=== PATIENT | male | born 1950 | race Caucasian/White ===

== ENCOUNTER 2025-04-19 03:09 | Observation (INO) | payer MEDICARE ==
--- NOTE | 2025-04-19 03:35 | ED ---
General Adult HPI - General Chief complaint: Chest Pain Stated complaint: Chest pain Time Seen by Provider: 04/19/25 03:13 Source: patient, RN notes reviewed, old records reviewed Mode of arrival: ambulatory - History of Present Illness Initial comments: 74-year-old male presenting with chief complaint of chest pain, tightness in the center of the chest. This woke the patient from sleep. This was associated with nausea and diaphoresis. Patient states the pain is improved at the time my evaluation. Pain did not radiate. Patient has had a previous positive coronary calcium score and states that he has had a negative stress test in the past. - Related Data Allergies Allergy/AdvReac Type Severity Reaction Status Date / Time No Known Allergies Allergy Verified 04/19/25 03:15 Review of Systems ROS Statement: Those systems with pertinent positive or pertinent negative responses have been documented in the HPI. ROS Other: All systems not noted in ROS Statement are negative. Past Medical History Past Medical History: Hyperlipidemia, Hypertension History of Any Multi-Drug Resistant Organisms: None Reported Past Surgical History: Orthopedic Surgery, Tonsillectomy Past Psychological History: No Psychological Hx Reported Smoking Status: Never smoker Past Alcohol Use History: Occasional Past Drug Use History: None Reported General Exam General appearance: alert, in no apparent distress Head exam: Present: atraumatic, normocephalic Eye exam: Present: normal appearance, PERRL ENT exam: Present: normal exam Neck exam: Present: normal inspection. Absent: tenderness, meningismus Respiratory exam: Present: normal lung sounds bilaterally. Absent: respiratory distress, wheezes Cardiovascular Exam: Present: regular rate, normal rhythm GI/Abdominal exam: Present: soft. Absent: distended, tenderness, guarding Extremities exam: Present: normal inspection, normal capillary refill Course Vital Signs 04/19/25 04/19/25 03:10 04:06 Temperature 97.6 F Pulse Rate 80 64 Respiratory 20 17 Rate Blood Pressure 158/86 153/98 O2 Sat by Pulse 96 99 Oximetry Medical Decision Making - Medical Decision Making Was pt. sent in by a medical professional or institution ( PA, STONE UNLOADER, urgent care, hospital, or [facility]...) When possible be specific @ -No Did you speak to anyone other than the patient for history (EMS, parent, family, police, friend...)? What history was obtained from this source @ -No Did you review nursing and triage notes (agree or disagree)? Why? @ -I reviewed and agree with nursing and triage notes Were old charts reviewed (outside hosp., previous admission, EMS record, old EKG, old radiological studies, urgent care reports/EKG's, [facility] records)? Report findings @ -No old charts were reviewed Differential Chest Pain: Stable Angina, Unstable Angina, STEMI, NSTEMI Aortic Dissection, Pneumothorax, Musculoskeletal, Esophageal Spasm GERD, Cholecystitis, Pancreatitis, Zoster, this is not meant to be an all-inclusive list. EKG interpreted by me (3pts min.). @Sinus rhythm rate of 68, MN interval 177, QRS duration 93, QTc [address] segment elevation. X-rays interpreted by me (1pt min.). @ -[Chest x-ray negative for acute cardiopulmonary findings CT interpreted by me (1pt min.). @ -None done U/S interpreted by me (1pt. min.). @ -None done What testing was considered but not performed or refused? (CT, X-rays, U/S, labs)? Why? @ -None What meds were considered but not given or refused? Why? @ -None Did you discuss the management of the patient with other professionals (professionals i.e. , PA, STONE UNLOADER, lab, RT, psych nurse, social work job titles, slubber machine operator, teacher, ground nuclear weapons assembly officer, family service caseworker)? Give summary @ -EMH Was smoking cessation discussed for >3mins.? @ -No Was critical care preformed (if so, how long)? @ -No Were there social determinants of health that impacted care today? How? (Homelessness, low income, unemployed, alcoholism, drug addiction, transportation, low edu. Level, literacy, decrease access to med. care, correction, rehab)? @ -No Was there de-escalation of care discussed even if they declined (Discuss DNR or withdrawal of care, Hospice)? DNR status @ -No What co-morbidities impacted this encounter? (DM, HTN, Smoking, COPD, CAD, Can cer, CVA, ARF, Chemo, Hep., AIDS, mental health diagnosis, sleep apnea, morbid obesity)? @ -None Was patient admitted / discharged? Hospital course, mention meds given and route, prescriptions, significant lab abnormalities, going to OR and other pertinent info. @ -74-year-old male woke with substernal chest pain, nonradiating. This was associated with nausea and diaphoresis. This is improved at the time my evaluation. Patient states he has previously had a positive coronary calcium score but does not have any prior cardiac history. Patient has an EKG showing sinus rhythm without ST segment elevation. His chest x-ray is clear no acute cardiopulmonary findings. He has a normal CBC, normal CMP, negative initial troponin. Patient will be kept in observation for serial cardiac enzymes, telemetry, cardiology consultation. Undiagnosed new problem with uncertain prognosis? @ -No Drug Therapy requiring intensive monitoring for toxicity (Heparin, Nitro, Insulin, Cardizem)? @ -No Were any procedures done? @ -No Diagnosis/symptom? @ -Chest pain rule out Acute, or Chronic, or Acute on Chronic? @Acute Uncomplicated (without systemic symptoms) or Complicated (systemic symptoms)? @ -Default Side effects of treatment? @ -No Exacerbation, Progression, or Severe Exacerbation? @ -No Poses a threat to life or bodily function? How? (Chest pain, [place], [place], pneumonia, PE, COPD, DKA, ARF, appy, cholecystitis, CVA, Diverticulitis, Homicidal, Suicidal, threat to staff... and all critical care pts) @ -Yes, ACS - Lab Data Result diagrams: 04/19/25 03:33 04/19/25 03:33 Lab Results 04/19/25 04/19/25 04/19/25 Range/Units 03:33 03:33 03:33 WBC 8.94 (4.50-10.00) 10*3/uL RBC 4.48 (4.40-5.60) 10*6/uL Hgb 15.1 (13.0-17.0) g/dL Hct 43.3 (39.6-50.0) % MCV 96.7 (80.0-97.0) fL MCH 33.7 H (27.0-32.0) pg MCHC 34.9 (32.0-37.0) g/dL Plt Count 215 (140-440) 10*3/uL MPV 10.5 (9.5-12.2) fL Immature Gran % (Auto) 0.1 % Neutrophils % 56.0 % Lymphocytes % 27.0 % Monocytes % 13.0 % Eosinophils % 3.2 % Basophils % 0.7 % Immature Gran # 0.01 (0.00-0.04) 10*3/uL Neutrophils # 5.01 (1.80-7.70) 10*3/uL Lymphocytes # 2.41 (0.90-5.00) 10*3/uL Monocytes # 1.16 H (0.20-1.00) 10*3/uL Eosinophils # 0.29 (0.04-0.35) 10*3/uL Basophils # 0.06 (0.00-0.10) 10*3/uL PT 10.5 (10.0-12.5) sec INR 0.9 (<1.2) APTT 24.3 (22.0-30.0) sec Sodium 137 (137-145) mmol/L Potassium 5.1 (3.5-5.1) mmol/L Chloride 102 (98-107) mmol/L Carbon Dioxide 24 (22-30) mmol/L Anion Gap 11 mmol/L BUN 31 H (9-20) mg/dL Creatinine 1.04 (0.66-1.25) mg/dL Est GFR (CKD-EPI)AfAm 82 (>60 ml/min/1.73 sqM) Est GFR (CKD-EPI)NonAf 71 (>60 ml/min/1.73 sqM) Glucose 106 H (74-99) mg/dL Calcium 9.7 (8.4-10.2) mg/dL Magnesium 2.2 (1.6-2.3) mg/dL Total Bilirubin 1.4 H (0.2-1.3) mg/dL AST 36 (17-59) U/L ALT 39 (4-49) U/L Alkaline Phosphatase 69 (38-126) U/L Troponin I (0.000-0.034) ng/mL Total Protein 7.4 (6.3-8.2) g/dL Albumin 4.6 (3.5-5.0) g/dL 04/19/25 Range/Units 03:33 WBC (4.50-10.00) 10*3/uL RBC (4.40-5.60) 10*6/uL Hgb (13.0-17.0) g/dL Hct (39.6-50.0) % MCV (80.0-97.0) fL MCH (27.0-32.0) pg MCHC (32.0-37.0) g/dL Plt Count (140-440) 10*3/uL MPV (9.5-12.2) fL Immature Gran % (Auto) % Neutrophils % % Lymphocytes % % Monocytes % % Eosinophils % % Basophils % % Immature Gran # (0.00-0.04) 10*3/uL Neutrophils # (1.80-7.70) 10*3/uL Lymphocytes # (0.90-5.00) 10*3/uL Monocytes # (0.20-1.00) 10*3/uL Eosinophils # (0.04-0.35) 10*3/uL Basophils # (0.00-0.10) 10*3/uL PT (10.0-12.5) sec INR (<1.2) APTT (22.0-30.0) sec Sodium (137-145) mmol/L Potassium (3.5-5.1) mmol/L Chloride (98-107) mmol/L Carbon Dioxide (22-30) mmol/L Anion Gap mmol/L BUN (9-20) mg/dL Creatinine (0.66-1.25) mg/dL Est GFR (CKD-EPI)AfAm (>60 ml/min/1.73 sqM) Est GFR (CKD-EPI)NonAf (>60 ml/min/1.73 sqM) Glucose (74-99) mg/dL Calcium (8.4-10.2) mg/dL Magnesium (1.6-2.3) mg/dL Total Bilirubin (0.2-1.3) mg/dL AST (17-59) U/L ALT (4-49) U/L Alkaline Phosphatase (38-126) U/L Troponin I <0.012 (0.000-0.034) ng/mL Total Protein (6.3-8.2) g/dL Albumin (3.5-5.0) g/dL Disposition Clinical Impression: Chest pain Disposition: ADMITTED IP TO THIS [facility] Condition: Stable Is patient prescribed a controlled substance at d/c from ED?: No Referrals: None,Stated [Primary Care Provider] - 1-2 days Time of Disposition: 04:54
[2025-04-19 03:46] LABS: Basophils # (A) 0.06 10*3/uL (0.00-0.10); Basophils % (A) 0.7 %; Eosinophils # (A) 0.29 10*3/uL (0.04-0.35); Eosinophils % (A) 3.2 %; HCT 43.3 % (39.6-50.0); HGB 15.1 g/dL (13.0-17.0); Lymphocytes # (A) 2.41 10*3/uL (0.90-5.00); Lymphocytes % (A) 27.0 %; MCH 33.7 pg (27.0-32.0); MCHC 34.9 g/dL (32.0-37.0); MCV 96.7 fL (80.0-97.0); Monocytes # (A) 1.16 10*3/uL (0.20-1.00); Monocytes % (A) 13.0 %; Neutrophils # (A) 5.01 10*3/uL (1.80-7.70); Neutrophils % (A) 56.0 %; Platelet Count 215 10*3/uL (140-440); RBC 4.48 10*6/uL (4.40-5.60); RDW 12.8 % (11.5-14.5); WBC 8.94 10*3/uL (4.50-10.00)
[2025-04-19] MEDS: ASPIRIN 81 MG PO STA (04:01)
[2025-04-19 04:05] LABS: ALT 39 U/L (4-49); AST 36 U/L (17-59); African American GFR (CKD) 82 (>60 ml/min/1.73 sqM); Albumin 4.6 g/dL (3.5-5.0); Alkaline Phosphatase 69 U/L (38-126); Anion Gap 11 mmol/L; Blood Urea Nitrogen 31 mg/dL (9-20); Calcium 9.7 mg/dL (8.4-10.2); Carbon Dioxide 24 mmol/L (22-30); Chloride 102 mmol/L (98-107); Glucose 106 mg/dL (74-99); Magnesium 2.2 mg/dL (1.6-2.3); Non-African American GFR(CKD) 71 (>60 ml/min/1.73 sqM); Potassium 5.1 mmol/L (3.5-5.1); Sodium 137 mmol/L (137-145); Total Protein 7.4 g/dL (6.3-8.2)
[2025-04-19 04:12] LABS: INR 0.9 (<1.2); Partial Thromboplastin Time 24.3 sec (22.0-30.0); Prothrombin Time 10.5 sec (10.0-12.5)
[2025-04-19] MEDS ORDERED: NALOXONE 0.4 MG/ML 1 ML VIAL IV PRN (04:50)
[2025-04-19] MEDS ORDERED: ACETAMINOPHEN TAB 325 MG TAB PO PRN (04:50)
--- NOTE | 2025-04-19 05:17 | XR ---
EXAM: XR Chest, 2 Views CLINICAL HISTORY: ITS.REASON XR Reason: Chest Pain TECHNIQUE: Frontal and lateral views of the chest. COMPARISON: No relevant prior studies available. FINDINGS: Lungs: Unremarkable. No consolidation. Pleural space: Unremarkable. No pneumothorax. Heart: Unremarkable. No cardiomegaly. Mediastinum: Unremarkable. Normal mediastinal contour. Bones/joints: Degenerative changes are seen within the spine and shoulders. No acute fracture. IMPRESSION: No acute findings in the chest.
[2025-04-19] MEDS: ASPIRIN 81 MG PO SCH (10:15)
--- NOTE | 2025-04-19 11:07 | CA ---
Transthoracic Echo Report Name: Kain Mendoza Age: 74 Gender: M : 1950 Exam Date: 04/19/2025 09:54 Exam Location: [facility] Ht (in): 77 Wt (lb): 238 Ordering Physician: Robyn Santana Attending/Referring Phys: [id number], Esther Hot Die Press Operator Yaritza Sevilla RDCS Procedure CPT: Indications: Chest Pain Cardiac Hx: Technical Quality: Fair Contrast 1: Total Dose (mL): Contrast 2: Total Dose (mL): MEASUREMENTS (Male / Female) Normal Values 2D ECHO LV Diastolic Diameter PLAX 4.3 cm 4.2 - 5.9 / 3.9 - 5.3 cm LV Systolic Diameter PLAX 3.1 cm IVS Diastolic Thickness 0.9 cm 0.6 - 1.0 / 0.6 - 0.9 cm LVPW Diastolic Thickness 0.8 cm 0.6 - 1.0 / 0.6 - 0.9 cm LV Relative Wall Thickness 0.4 RV Internal Dim ED PLAX 3.5 cm LA Systolic Diameter LX 3.4 cm 3.0 - 4.0 / 2.7 - 3.8 cm LV Diastolic Volume MOD 4C 111.9 cm??? LV Systolic Volume MOD 4C 47.8 cm??? LV Ejection Fraction MOD 4C 57.3 % LV Cardiac Index MOD 4C 1841.7 cm???/min???m??? LV Diastolic Length 4C 9.1 cm LV Systolic Length 4C 7.7 cm LV Diastolic Volume MOD 2C 85.0 cm??? LV Systolic Volume MOD 2C 41.4 cm??? LV Ejection Fraction MOD 2C 51.3 % LV Cardiac Index MOD 2C 1252.0 cm???/min???m??? LV Diastolic Length 2C 9.7 cm LV Systolic Length 2C 8.3 cm LA Volume 43.1 cm??? 18 - 58 / 22 - 52 cm??? LA Volume Index 17.7 cm???/m??? 16 - 28 cm???/m??? M-MODE Aortic Root Diameter MM 3.8 cm AV Cusp Separation MM 2.1 cm DOPPLER AV Peak Velocity 121.0 cm/s AV Peak Gradient 5.9 mmHg MV Area PHT 3.0 cm??? Mitral E Point Velocity 66.2 cm/s Mitral A Point Velocity 66.6 cm/s Mitral E to A Ratio 1.0 MV Deceleration Time 253.1 ms FINDINGS Left Ventricle Left ventricular ejection fraction is estimated at 55-60 %. Left ventricular cavity size normal. Left ventricular wall thickness normal. No obvious regional wall motion abnormalities. Right Ventricle Normal right ventricular size. Unable to estimate the right ventricular systolic pressure. Right Atrium Normal right atrial size. No right atrial thrombus or mass seen. Left Atrium Normal left atrial size. No left atrial thrombus or mass present. Mitral Valve Structurally normal mitral valve. No mitral stenosis, regurgitation or prolapse. Aortic Valve Trileaflet aortic valve. No aortic valve stenosis or regurgitation. Tricuspid Valve Structurally normal tricuspid valve. No tricuspid stenosis, regurgitation or prolapse. Pulmonic Valve Pulmonic valve not well visualized. No pulmonic regurgitation. Pericardium No pericardial effusion. Aorta Mild aortic dilatation at the level of the sinuses of valsalva 38 mm CONCLUSIONS 1. Normal left ventricular size and systolic function. 2. No significant valvular abnormality Previewed by: Dr. Maribel Jacobson MD (Electronically Signed) Final Date: 19 April 2025 11:07
[2025-04-19 11:10] VITALS: BP 141/79; PULSE 65; RESP 18; TEMP 98
--- NOTE | 2025-04-19 11:11 | P.CRDCN ---
History of Present Illness History of present illness: HISTORY OF PRESENT ILLNESS: This is a 74-year-old male with a past medical history significant for hypertension and hyperlipidemia. Patient follows with a addiction specialist in [place]. We have been asked to see the patient in consultation for chest pain. Patient examined at the bedside in the emergency room. Patient states that he woke up from sleep around 130 this morning with chest pain. He states that he went to lay on the couch for a while but the chest pain persisted so he went and woke up with his and came to the hospital for further evaluation. He denies any radiation of the pain. He states he is only having chest pain off he takes a deep breath. He denies any shortness of breath. Denies any dizziness or lightheadedness. Patient states he is very active and golfs and plays tennis a few times a week and also goes to the gym. He denies any known history of CAD. He does report a history of a high calcium score of 1700 and saw a addiction specialist in the [place] area. He underwent a stress test at that time which was unremarkable. He also reports having another stress test done 2 years ago in [place] that was normal. He does report daily caffeine use. He also reports 1- 2 alcoholic drinks a day. He is a non-smoker. DIAGNOSTICS: - EKG reveals sinus mechanism with no signs of acute ischemia. - Chest xray negative for acute findings. - Laboratory data: Troponin negative x 3 - Current home cardiac medications include aspirin 81 mg daily, Lipitor 10 mg daily, losartan 50 mg daily, amlodipine 5 mg daily. - Echocardiogram obtained this admission revealed ejection fraction 55 to 60% with no significant valvular abnormalities - Cardiac catheterization history: Patient denies REVIEW OF SYSTEMS: At the time of my exam: CONSTITUTIONAL: Denies fever or chills. HEENT: Denies blurred vision, vision changes, or eye pain. Denies hemoptysis CARDIOVASCULAR: Denies chest pain. Denies orthopnea. Denies PND. Denies palpitations RESPIRATORY: Denies shortness of breath. GASTROINTESTINAL: Denies abdominal pain. Denies nausea or vomiting. HEMATOLOGIC: Denies bleeding disorders. GENITOURINARY: Denies any blood in urine. SKIN: Denies pruitis. Denies rash. PHYSICAL EXAM: VITAL SIGNS: Reviewed. GENERAL: Well-developed in no acute distress. HEENT: Head is normocephalic. Pupils are equal, round. Sclerae anicteric. Mucous membranes of the mouth are moist. Neck supple. No JVD or thyromegaly LUNGS: Respirations even and unlabored. Lungs essentially clear to auscultation bilaterally. HEART: Regular rate and rhythm. S1 and S2 heard. ABDOMEN: Soft. Nondistended. Nontender. EXTREMITIES: Normal range of motion. No clubbing or cyanosis. Peripheral pulses intact. No lower extremity edema NEUROLOGIC: Awake and alert. Oriented x 3. ASSESSMENT: Chest pain, troponin negative x 3 History of hypertension History of hyperlipidemia Daily alcohol use PLAN: An acute coronary event has been ruled out 2D echo obtained and reviewed Resume home cardiac medications Recommend abstinence from alcohol Patient to undergo stress echocardiogram today If negative, patient may be discharged home from a cardiac standpoint Nurse practitioner note has been reviewed by physician. Signing provider agrees with the documented findings, assessment, and plan of care documented by CARD PAINTER as a scribe. Past Medical History Past Medical History: Hyperlipidemia, Hypertension History of Any Multi-Drug Resistant Organisms: None Reported Past Surgical History: Orthopedic Surgery, Tonsillectomy Past Psychological History: No Psychological Hx Reported Smoking Status: Never smoker Past Alcohol Use History: Occasional Past Drug Use History: None Reported Medications and Allergies Home Medications Medication Instructions Recorded Confirmed Type Aspirin 81 mg PO DAILY 04/19/25 04/19/25 History Atorvastatin [Lipitor] 10 mg PO HS 04/19/25 04/19/25 History Glucosa Branch 2Kcl/Chondroitin Branch 1 cap PO DAILY 04/19/25 04/19/25 History [Glucosamine-Chondroitin Cap] Losartan [Cozaar] 50 mg PO HS 04/19/25 04/19/25 History Multivitamins, Thera [Multivitamin 1 tab PO DAILY 04/19/25 04/19/25 History (formulary)] Omeprazole Magnesium [PriLOSEC OTC] 20 mg PO AC-BRKFST 04/19/25 04/19/25 History Psyllium Husk [Fiber Capsule] 0.8 gm PO DAILY 04/19/25 04/19/25 History amLODIPine [Norvasc] 5 mg PO HS 04/19/25 04/19/25 History Allergies Allergy/AdvReac Type Severity Reaction Status Date / Time No Known Allergies Allergy Verified 04/19/25 07:38 Physical Exam Vitals: Vital Signs Temp Pulse Resp BP Pulse Ox 04/19/25 05:01 64 17 137/80 100 04/19/25 04:06 64 17 153/98 99 04/19/25 03:10 97.6 F 80 20 158/86 96 Intake and Output 04/18/25 04/19/25 04/19/25 22:59 06:59 14:59 Other: Weight 107.955 kg Results 04/19/25 03:33 04/19/25 03:33 Cardiac Enzymes 04/19/25 04/19/25 04/19/25 Range/Units 03:33 03:33 06:31 AST 36 (17-59) U/L Troponin I <0.012 <0.012 (0.000-0.034) ng/mL Coagulation 04/19/25 Range/Units 03:33 PT 10.5 (10.0-12.5) sec APTT 24.3 (22.0-30.0) sec CBC 04/19/25 Range/Units 03:33 WBC 8.94 (4.50-10.00) 10*3/uL RBC 4.48 (4.40-5.60) 10*6/uL Hgb 15.1 (13.0-17.0) g/dL Hct 43.3 (39.6-50.0) % Plt Count 215 (140-440) 10*3/uL Comprehensive Metabolic Panel 04/19/25 Range/Units 03:33 Sodium 137 (137-145) mmol/L Potassium 5.1 (3.5-5.1) mmol/L Chloride 102 (98-107) mmol/L Carbon Dioxide 24 (22-30) mmol/L BUN 31 H (9-20) mg/dL Creatinine 1.04 (0.66-1.25) mg/dL Glucose 106 H (74-99) mg/dL Calcium 9.7 (8.4-10.2) mg/dL AST 36 (17-59) U/L ALT 39 (4-49) U/L Alkaline Phosphatase 69 (38-126) U/L Total Protein 7.4 (6.3-8.2) g/dL Albumin 4.6 (3.5-5.0) g/dL Current Medications Generic Name Dose Route Start Last Admin Trade Name Freq PRN Reason Stop Dose Admin Acetaminophen 650 mg 04/19/25 04:50 Acetaminophen Tab 325 Mg Tab PO Q6HR PRN Mild Pain or Fever > 100.5 Naloxone HCl 0.2 mg 04/19/25 04:50 Naloxone 0.4 Mg/Ml 1 Ml Vial IV Q2M PRN Opioid Reversal Intake and Output 04/18/25 04/19/25 04/19/25 22:59 06:59 14:59 Other: Weight 107.955 kg 04/19/25 03:33 04/19/25 03:33
--- NOTE | 2025-04-19 14:02 | CA ---
Stress Echo Report Kain Mendoza Age: 74 Gender: M : 1950 Exam Date: 04/19/2025 12:41 Exam Location: [facility] Ht (in): 77 Wt (lb): 238 Ordering Physician: Robyn Santana Referring Physician: [id number] Project Control Analyst: NÉSTOR Technologist Procedure CPT: Indication: CP ICD-9 Codes: Rhythm: Patient History: CP, HTN, HIGH CHOL. Cardiac Medications: SEE CHART,,,,, Medications in past 24 hours: Contrast: Definity Stress Results Protocol: Gaudencio Total dose(mL): Exercise Duration (min:sec): Max ST Depression (mm): Angina Score: Bose Score: METS: 7.9 Resting HR: 112 Resting BP: 137 / 70 Peak HR: 145 Peak BP: 195 / 83 Max Predicted HR: 146 99 % Max Predicted HR Target HR: 124 Double Product: 04172 Stress Summary: BP Response: Reason for Termination: MAX EXERTION/TARGET HR Cardiac Symptoms: NO SYMPTOMS ECG Analysis Resting ECG: Normal sinus rhythm, normal ECG Stress ECG: No abnormal ST/T wave changes with exercise Arrhythmia: None Echo Analysis Resting Echo: Normal resting echocardiogram. Peak Echo Analysis: Normal wall thickening and motion MEASUREMENTS (Male/Female) Normal Values CONCLUSIONS 1. Average exercise tolerance with normal electrocardiographic response to exercise 2. Normal stress echocardiogram with no evidence of stress- induced ischemia Dr. Maribel Jacobson MD (Electronically Signed) Final Date: 19 April 2025 14:01
--- NOTE | 2025-04-19 15:02 | P.HPIM ---
History of Present Illness H&P Date: 04/19/25 Patient is a 74-year-old male with past medical history history significant for hypertension and hyperlipidemia presented to the emergency department for chest pain. He describes it as starting in the center of his chest and it woke him from his sleep at 0130. He states that he attempted positional changes that did not resolve the pain and it got worse around 0230 so he came to the ER. He has never experienced pain like this before. He describes it as a sharp achy pain in the center of his chest right over his sternum. He denies any radiation of pain. He notes increase in pain with deep inspiration at this time. He follows with a geoscience specialist in [place], he reports that he had a calcium score of 1700 and he had a negative stress test after that. At the time of this interview the chest pain has resolved. He also notes that he has been doing a lot of yard work, including yesterday. Denies fever/chills, nausea/vomiting, dyspnea. Initial vitals: T90 7.6 F, BP 158/86, LA 80 bpm, RR 20, 96% on room air Initial labs: WBC 8.94, hemoglobin 15.1, hematocrit 43.3, platelets 215, sodium 137, potassium 5.1, chloride 102, CO2 24, creatinine 1.04, glucose 106, total bilirubin 1.4, troponin X1 <0.012 Initial EKG: Normal sinus rhythm, ventricular rate 68 bpm, no ST segment changes, QTc 423 ms Initial chest x-ray: No acute cardiopulmonary process ED documentation reviewed. Review of systems: Pertinent positives and negatives as discussed in HPI, a complete review of systems was performed and all other systems are negative. Social history: Tobacco: Denies Alcohol: 1-2 drinks daily Recreational drugs: Denies Travel: Denies Sick contacts: Denies Physical examination: Vital signs reviewed General: Nontoxic, no distress, appears stated age, well-appearing Derm: Warm, dry, intact, no cyanosis Head: Atraumatic, normocephalic, symmetric Eyes: EOMI, anicteric sclera, PERRL Ears: Normal appearing, no external lesions, hearing intact Nose: Normal appearing, no external lesions Mouth: No lip lesion, mucus membranes moist, no tonsilar hypertrophy or exudate Neck: Supple, without lesions, trachea midline Cardiovascular: S1-S2 regular, no murmur, no pedal edema Lungs: CTA bilateral, no wheezes, no rhonchi, no rales, no accessory muscle use Abdominal: Soft, non-tender to palpation, bowel sounds present Extremities: Muscle strength 5/5 in all extremities, radial pulses 2+ bilateral, posterior tibial pulses 2+ bilateral Neuro: Alert, oriented x 4, gross neurological examination did not reveal any focal deficits. Cranial nerves II to XII grossly intact. Psych: Appropriate affect and mood Assessment and Plan: Patient is a 74-year-old male with past medical history significant for hypertension and hyperlipidemia admitted for observation for chest pain. Active #. Chest pain Troponin x1 <0.012 Rule out ACS Monitor vital signs Monitor CBC Monitor CMP Continue telemetry monitoring Obtain serial troponin Obtain 2D echo Obtain D-dimer Obtain lipid panel Obtain HbA1c level Resume home medicine Cardiology consulted, appreciate recommendations Chronic #. Hypertension Continue amlodipine 5 mg p.o. at bedtime Continue Cozaar 50 mg p.o. at bedtime #. Hyperlipidemia Continue Lipitor 10 mg p.o. at bedtime DVT prophylaxis: SCDs GI prophylaxis: Not indicated at this time The patient is admitted with an anticipated less than 2 midnight stay for evaluation of chest pain CODE STATUS: Full code Discussed with: Dr. Owusu Anticipated discharge place: Home Past Medical History Past Medical History: Hyperlipidemia, Hypertension History of Any Multi-Drug Resistant Organisms: None Reported Past Surgical History: Orthopedic Surgery, Tonsillectomy Past Psychological History: No Psychological Hx Reported Smoking Status: Never smoker Past Alcohol Use History: Occasional Past Drug Use History: None Reported Medications and Allergies Home Medications Medication Instructions Recorded Confirmed Type Aspirin 81 mg PO DAILY 04/19/25 04/19/25 History Atorvastatin [Lipitor] 10 mg PO HS 04/19/25 04/19/25 History Glucosa Branch 2Kcl/Chondroitin Branch 1 cap PO DAILY 04/19/25 04/19/25 History [Glucosamine-Chondroitin Cap] Losartan [Cozaar] 50 mg PO HS 04/19/25 04/19/25 History Multivitamins, Thera [Multivitamin 1 tab PO DAILY 04/19/25 04/19/25 History (formulary)] Omeprazole Magnesium [PriLOSEC OTC] 20 mg PO AC-BRKFST 04/19/25 04/19/25 History Psyllium Husk [Fiber Capsule] 0.8 gm PO DAILY 04/19/25 04/19/25 History amLODIPine [Norvasc] 5 mg PO HS 04/19/25 04/19/25 History Allergies Allergy/AdvReac Type Severity Reaction Status Date / Time No Known Allergies Allergy Verified 04/19/25 07:38 Physical Exam Vitals: Vital Signs Temp Pulse Resp BP Pulse Ox 04/19/25 05:01 64 17 137/80 100 04/19/25 04:06 64 17 153/98 99 04/19/25 03:10 97.6 F 80 20 158/86 96 Intake and Output 04/18/25 04/19/25 04/19/25 22:59 06:59 14:59 Other: Weight 107.955 kg Results CBC & Chem 7: 04/19/25 03:33 04/19/25 03:33 Labs: Abnormal Lab Results - Last 24 Hours (Table) 04/19/25 04/19/25 Range/Units 03:33 03:33 MCH 33.7 H (27.0-32.0) pg Monocytes # 1.16 H (0.20-1.00) 10*3/uL BUN 31 H (9-20) mg/dL Glucose 106 H (74-99) mg/dL Total Bilirubin 1.4 H (0.2-1.3) mg/dL
--- NOTE | 2025-04-19 15:09 | P.DS ---
Providers Date of admission: 04/19/25 04:50 Expected date of discharge: 04/19/25 Attending physician: Tg Sorto Consults: 04/19/25 04:50 Consult Physician Routine Consulting Provider: Vidal Florez Consult Reason/Comments: CP Do you want consulting provider notified?: Yes Primary care physician: Stated None - Discharge Diagnosis(es) (1) Chest pain Current Visit: Yes Status: Acute Hospital Course: Hospital Course: Patient is a 74-year-old male with past medical history significant for hyper tension and hyperlipidemia presented to the hospital for sudden onset sternal chest pain that woke him from sleeping. In the ED he was given 324 mg aspirin and an EKG showed normal sinus rhythm without ST segment changes. Serial troponins were negative. Labs were unremarkable. Cardiology was consulted and a 2D echo and stress echo were performed. Both 2D echo and stress echo were negative. Patient was deemed appropriate for discharge by cardiology. Recommend patient follow-up with PCP and cardiology upon discharge from the hospital. Patient is medically stable for discharge. Final Diagnosis: #. Chest pain, ACS ruled out #. Hypertension #. Hyperlipidemia Physical examination: Vital signs reviewed General: Nontoxic, no distress, appears stated age, well-appearing Derm: Warm, dry, intact, no cyanosis Head: Atraumatic, normocephalic, symmetric Eyes: EOMI, anicteric sclera, PERRL Ears: Normal appearing, no external lesions, hearing intact Nose: Normal appearing, no external lesions Mouth: No lip lesion, mucus membranes moist, no tonsilar hypertrophy or exudate Neck: Supple, without lesions, trachea midline Cardiovascular: S1-S2 regular, no murmur, no pedal edema Lungs: CTA bilateral, no wheezes, no rhonchi, no rales, no accessory muscle use Abdominal: Soft, non-tender to palpation, bowel sounds present Extremities: Muscle strength 5/5 in all extremities, radial pulses 2+ bilateral, posterior tibial pulses 2+ bilateral Neuro: Alert, oriented x 5, gross neurological examination did not reveal any focal deficits. Cranial nerves II to XII grossly intact. Psych: Appropriate affect and mood Patient Condition at Discharge: Good Plan - Discharge Summary New Discharge Prescriptions: Continue Psyllium Husk [Fiber Capsule] 0.8 gm PO DAILY amLODIPine [Norvasc] 5 mg PO HS Omeprazole Magnesium [PriLOSEC OTC] 20 mg PO AC-BRKFST Multivitamins, Thera [Multivitamin (formulary)] 1 tab PO DAILY Losartan [Cozaar] 50 mg PO HS Atorvastatin [Lipitor] 10 mg PO HS Aspirin 81 mg PO DAILY Glucosa Branch 2Kcl/Chondroitin Branch [Glucosamine-Chondroitin Cap] 1 cap PO DAILY Discharge Medication List Aspirin 81 mg PO DAILY 04/19/25 [History] Atorvastatin [Lipitor] 10 mg PO HS 04/19/25 [History] Glucosa Branch 2Kcl/Chondroitin Branch [Glucosamine-Chondroitin Cap] 1 cap PO DAILY 0 04/19/25 [History] Losartan [Cozaar] 50 mg PO HS 04/19/25 [History] Multivitamins, Thera [Multivitamin (formulary)] 1 tab PO DAILY 04/19/25 [History] Omeprazole Magnesium [PriLOSEC OTC] 20 mg PO AC-BRKFST 04/19/25 [History] Psyllium Husk [Fiber Capsule] 0.8 gm PO DAILY 04/19/25 [History] amLODIPine [Norvasc] 5 mg PO HS 04/19/25 [History] Follow up Appointment(s)/Referral(s): Maribel Jacobson MD [STAFF PHYSICIAN] - 1 Week None,Stated [Primary Care Provider] - 1-2 days Patient Instructions/Handouts: Chest Pain (DC)
[2025-04-19 15:39] LABS: Cholesterol 124.00 mg/dL (0.00-200.00); HDL Cholesterol 66.20 mg/dL (40.00-60.00); LDL Cholesterol,Calculated 43.0 mg/dL (0.0-131.0); Triglycerides 73.90 mg/dL (0.00-149.00); VLDL Calculation 14.78 mg/dL (5.00-40.00)
[2025-04-19] MEDS ORDERED: ATORVASTATIN 10 MG TAB PO SCH (21:00)
[2025-04-19] MEDS ORDERED: LOSARTAN 50 MG TAB PO SCH (21:00)
[2025-04-19] MEDS ORDERED: amLODIPine 5 MG TAB PO SCH (21:00)
== END 2025-04-19 14:48 | disposition home or self-care (01) ==
LOC: EC 03:09 → 1SOBS 04:50
PROVIDERS: ADMIT Hospitalist; ATTEND Hospitalist
DX: R07.2 Precordial pain (principal); R11.0 Nausea; R61 Generalized hyperhidrosis; I10 Essential (primary) hypertension; E78.5 Hyperlipidemia, unspecified; Z79.82 Long term (current) use of aspirin; Z79.899 Other long term (current) drug therapy
CPT/HCPCS: 99285; 36415; 93005; 93306; 85379; 80061; 80053; 83735; 84484; 85025; 85610; 85730; 83036; 71046; G0378; C8930; Q9957; 93351